=== PATIENT | male | born 1955 | race Caucasian/White ===

== ENCOUNTER 2019-05-06 21:56 | Emergency (ER) | payer BC ==
[~2019-05-06] VITALS: Ht 190.5 cm; Wt 108.9 kg
[2019-05-06 21:59] VITALS: BP_SYST 177
--- NOTE | 2019-05-06 22:40 | NUR ---
Placed in room 1 . Placed on alarm security or surveillance monitor, blood pressure machine and pulse oximeter. To gown for exam. Side rails up.
--- NOTE | 2019-05-06 22:50 | NUR ---
Pt BIB ACLS with c/o chest palpitations. Pt A&Ox4. Pt states palpitations began at approximately 2014. Pt states he was eating dinner with his family and had 1 beer when he sat down with family to watch a movie and he started feeling "burning in chest." Pt has history of GERD. Pt states he took 2 tums and a bottle of water. Pt states his heart started beating fast and got scared. Pt states no prior exertion before chest palpitations began. Pt states no chest pain, no SOB, and no diaphoresis. Pt states "this has happened 3 times the past year."
--- NOTE | 2019-05-06 22:50 | NUR ---
ACLS placed 18 g in L AC. Site was flushed. IV patent. No infiltration noted.
--- NOTE | 2019-05-06 22:51 | NUR ---
ER Dr. Kelly at bedside examining patient.
--- NOTE | 2019-05-06 23:25 | NUR ---
radiology at bedside.
--- NOTE | 2019-05-06 23:43 | NUR ---
laboratory at bedside.
[2019-05-07 00:06] LABS: BASOPHILS # (AUTO) 0.1 K/uL (0.0-0.2); EOSINOPHILS # (AUTO) 0.3 K/uL (0.0-0.4); EOSINOPHILS % (AUTO) 3.7 % (0.0-4.0); HEMATOCRIT 44.3 % (36-54); HEMOGLOBIN 15.2 g/dL (14.0-18.0); LYMPHOCYTES # (AUTO) 1.8 K/uL (1.0-5.5); LYMPHOCYTES % (AUTO) 22.9 % (20.5-51.5); MEAN CORPUSCULAR HEMOGLOBIN 31 pg (27-31); MEAN CORPUSCULAR HGB CONC 34 % (32-36); MEAN CORPUSCULAR VOLUME 91 fL (79.0-98.0); MONOCYTES # (AUTO) 0.6 K/uL (0.0-1.0); MONOCYTES % (AUTO) 8.2 % (1.7-9.3); NEUTROPHILS % (AUTO) 64.2 % (40.0-70.0); PLATELET COUNT (AUTO) 211 K/uL (130-430); RED BLOOD CELL COUNT(AUTO) 4.86 MIL/uL (4.2-6.2); RED CELL DISTRIBUTION WIDTH 13.3 % (9.0-15.0); WHITE BLOOD COUNT (AUTO) 7.7 K/uL (4.8-10.8)
[2019-05-07 00:12] LABS: CREATININE 0.96 mg/dL (0.55-1.30); POTASSIUM 3.6 mmol/L (3.5-5.1)
[2019-05-07 00:18] LABS: ALBUMIN 3.6 g/dL (3.4-4.8); TOTAL BILIRUBIN 0.3 mg/dL (0.0-1.0)
--- NOTE | 2019-05-07 00:36 | NUR ---
ER Dr. Kelly at bedside explaining results to patient.
[2019-05-07 01:10] VITALS: BP_SYST 135
--- NOTE | 2019-05-07 01:10 | NUR ---
Patient given written and verbal discharge instructions and verbalizes understanding. ER MD Kelly discussed with patient the results and treatment provided. Patient in stable condition. ID arm band removed. IV catheter removed intact and dressing applied, no active bleeding. No Rx given. Patient educated on pain management and to follow up with PMD. Pain Scale 0/10. Opportunity for questions provided and answered. Medication side effect fact sheet provided.
== END 2019-05-07 01:10 | disposition home or self-care (01) ==
LOC: SED 21:56
DX: R00.2 Palpitations (principal); I10 Essential (primary) hypertension; K21.9 Gastro-esophageal reflux disease without esophagitis
CPT/HCPCS: 36415; 71045; 80053; 83880; 84484; 85025; 93005; 99284